=== PATIENT | male | born 1950 | race Caucasian/White ===

== ENCOUNTER 2018-10-03 08:55 | Observation (INO) | payer OTHER, MEDICARE ==
[~2018-10-03] VITALS: Ht 167.6 cm; Wt 89.6 kg
[2018-10-03] MEDS ORDERED: ONDANSETRON 2MG/ML, 2ML ONE (09:28)
[2018-10-03] MEDS ORDERED: MORPHINE SULFATE 4 MG/ML, 1ML ONE ×2 (09:29→10:58)
[2018-10-03] MEDS ORDERED: PLEASE ENTER ALLERGIES MC SCH (09:30)
[2018-10-03] MEDS ORDERED: ONDANSETRON 2MG/ML, 2ML IVPush ONE (09:30)
[2018-10-03] MEDS ORDERED: SODIUM CHLORIDE FLUSH 10ML SYR IVF ONE (09:30)
[2018-10-03] MEDS: MORPHINE SULFATE 4 MG/ML, 1ML IVPush PRN ×4 (09:42→14:44)
[2018-10-03] MEDS ORDERED: CYCLOBENZAPRINE 10 MG TABLET ONE (10:58)
[2018-10-03] MEDS ORDERED: CYCLOBENZAPRINE 10 MG TABLET PO ONE (11:00)
--- NOTE | 2018-10-03 11:20 | NUR ---
UNABLE TO AMBULATE DUE TO PAIN WILL REMEDICATE
--- NOTE | 2018-10-03 12:15 | NUR ---
REMAINS IN PAIN THAT PREVENTS WALKING
--- NOTE | 2018-10-03 12:29 | NUR ---
MUCH DISCUSION RE ADMIT OR DC HAS TAKEN PLACE WITH PT FAMILY THE ERP WITH INTERJECTION FROM A CLOSE FRIEND IT IS THE RECOMENDATION OF THE ERP TO ADMIT FOR PAIN NOT CONTROLLED WITH MORPHINE FRIEND CONTINUES TO WANT AND ECOURAGES THE PT TO ASK FOR MORE AND DIFFERANT PAIN MEDS AT THIS TIME LABS DRAWN AND ADMIT DEFERRED TO WAIT ON RESULTS OF LAB PER FAMILY
[2018-10-03 12:32] LABS: BASOPHILS # (AUTO) 0.04 x10^3/uL (0-0.1); BASOPHILS % (AUTO) 0 % (0-1); EOSINOPHILS # (AUTO) 0.09 x10^3/uL (0-0.4); EOSINOPHILS % (AUTO) 1 % (1-7); LYMPHOCYTES # (AUTO) 1.93 x10^3/uL (1-3.4); LYMPHOCYTES % (AUTO) 18 % (22-44); MD NO; MEAN CORPUSCULAR HEMOGLOBIN 32.4 pg (27.5-34.5); MEAN CORPUSCULAR HGB CONC 34.6 g/dL (33.2-36.2); MEAN CORPUSCULAR VOLUME 93.7 fL (81-97); MEAN PLATELET VOLUME 7.5 fL (7.4-10.4); MONOCYTES # (AUTO) 0.63 x10^3/uL (0.2-0.8); MONOCYTES % (AUTO) 6 % (2-9); NEUTROPHILS # (AUTO) 8.24 x10^3/uL (1.8-6.8); NEUTROPHILS % (AUTO) 75 % (42-75); PLATELET COUNT 284 x10^3/uL (130-400); RED BLOOD COUNT 5.07 x10^6/uL (4.38-5.82)
[2018-10-03 12:38] LABS: ANION GAP 7 mmol/L (5-15); CALCIUM 9.2 mg/dL (8.5-10.1); CHLORIDE 109 mmol/L (98-107); CREATININE 0.91 mg/dL (0.7-1.3)
[2018-10-03] MEDS ORDERED: KETOROLAC 30 MG/1 ML ONE (12:54)
[2018-10-03] MEDS ORDERED: KETOROLAC 30 MG/1 ML IVPush ONE (13:00)
--- NOTE | 2018-10-03 13:22 | NUR ---
HOSPITALIST TO THE BS
[2018-10-03] MEDS ORDERED: SODIUM CHLORIDE 0.9% 1,000 ML IV SCH (13:28)
[2018-10-03] MEDS ORDERED: LISINOPRIL 10 MG TABLET PO ONE (13:30)
[2018-10-03] MEDS ORDERED: BISACODYL 10 MG SUPP PR PRN (13:30)
[2018-10-03] MEDS ORDERED: hydrALAzine 20 MG/ML, 1ML IVPush PRN (13:30)
[2018-10-03] MEDS ORDERED: LIDODERM 5% PATCH TD PRN (13:30)
[2018-10-03] MEDS ORDERED: CYCLOBENZAPRINE 10 MG TABLET PO PRN ×2 (13:30→17:00)
[2018-10-03] MEDS ORDERED: DOCUSATE 100 MG CAPSULE PO PRN (13:30)
[2018-10-03] MEDS ORDERED: HYDROCHLOROTHIAZIDE 12.5 MG CAPSULE PO ONE (13:30)
[2018-10-03] MEDS ORDERED: ACETAMINOPHEN 325 MG TABLET PO PRN (13:30)
[2018-10-03] MEDS ORDERED: ONDANSETRON 2MG/ML, 2ML IVPush PRN (13:30)
[2018-10-03] MEDS ORDERED: ENALAPRILAT 1.25 MG/ML, 2ML IVPush PRN (13:30)
[2018-10-03] MEDS ORDERED: ONDANSETRON ODT 4 MG PO PRN (13:30)
[2018-10-03 13:55] VITALS: BP 133/70
[2018-10-03 14:00] VITALS: BP 133/70
[2018-10-03] MEDS: NICOTINE 7 MG/24 HR PATCH.TD24 TD SCH (15:11)
[2018-10-03] MEDS: HYDROcodone/APAP 5/325 TABLET PO PRN ×2 (15:40→21:54)
[2018-10-03 19:50] VITALS: BP 121/70
[2018-10-03] MEDS: SIMVASTATIN 40 MG TABLET PO SCH (20:07)
[2018-10-03] MEDS: METHOCARBAMOL 500 MG TABLET PO PRN (23:53)
[2018-10-04 01:32] VITALS: BP 122/66
[2018-10-04 02:24] LABS: MICROSCOPIC NOT IND
[2018-10-04 02:32] LABS: CULTURE INDICATED? NO
[2018-10-04 05:14] LABS: BASOPHILS # (AUTO) 0.04 x10^3/uL (0-0.1); BASOPHILS % (AUTO) 1 % (0-1); EOSINOPHILS # (AUTO) 0.23 x10^3/uL (0-0.4); EOSINOPHILS % (AUTO) 3 % (1-7); LYMPHOCYTES # (AUTO) 3.02 x10^3/uL (1-3.4); LYMPHOCYTES % (AUTO) 40 % (22-44); MD NO; MEAN CORPUSCULAR HEMOGLOBIN 32.5 pg (27.5-34.5); MEAN CORPUSCULAR HGB CONC 34.2 g/dL (33.2-36.2); MEAN CORPUSCULAR VOLUME 94.9 fL (81-97); MONOCYTES % (AUTO) 11 % (2-9); NEUTROPHILS % (AUTO) 45 % (42-75); PLATELET COUNT 240 x10^3/uL (130-400); RED BLOOD COUNT 4.51 x10^6/uL (4.38-5.82); RED CELL DISTRIBUTION WIDTH 13.6 % (9.4-14.8)
[2018-10-04 05:28] LABS: ANION GAP 6 mmol/L (5-15); CALCIUM 8.6 mg/dL (8.5-10.1); CHLORIDE 111 mmol/L (98-107); CREATININE 0.86 mg/dL (0.7-1.3)
[2018-10-04] MEDS: ASPIRIN 81 MG TABLET EC PO SCH (05:35)
[2018-10-04] MEDS: HYDROcodone/APAP 5/325 TABLET PO PRN (05:35)
[2018-10-04 07:08] VITALS: BP 148/69
[2018-10-04] MEDS: SENNA/DOCUSATE TABLET PO SCH (08:16)
[2018-10-04] MEDS: ACETAMINOPHEN 325 MG TABLET PO SCH ×3 (10:06→20:59)
[2018-10-04 12:30] VITALS: BP 125/75
[2018-10-04] MEDS ORDERED: HYDROcodone/APAP 5/325 TABLET PO PRN (13:30)
[2018-10-04] MEDS: METHOCARBAMOL 500 MG TABLET PO PRN (13:34)
[2018-10-04] MEDS: NICOTINE 7 MG/24 HR PATCH.TD24 TD SCH (13:34)
[2018-10-04] MEDS: KETOROLAC 30 MG/1 ML IV PRN ×2 (14:15→20:33)
[2018-10-04 19:38] VITALS: BP 139/67
[2018-10-04] MEDS: SIMVASTATIN 40 MG TABLET PO SCH (20:33)
[2018-10-05] MEDS: METHOCARBAMOL 500 MG TABLET PO PRN ×2 (00:07→09:29)
[2018-10-05 01:32] VITALS: BP 138/62
[2018-10-05] MEDS: ACETAMINOPHEN 325 MG TABLET PO SCH ×2 (04:15→09:29)
[2018-10-05] MEDS: KETOROLAC 30 MG/1 ML IV PRN (04:15)
[2018-10-05] MEDS: ASPIRIN 81 MG TABLET EC PO SCH (05:54)
[2018-10-05 06:56] VITALS: BP 135/71
[2018-10-05] MEDS: SENNA/DOCUSATE TABLET PO SCH (09:29)
[2018-10-05] MEDS ORDERED: LIDO700A20 TD (10:48)
[2018-10-05] MEDS ORDERED: SIMV40TA3 PO (10:48)
[2018-10-05] MEDS ORDERED: NICO-485 TD (10:48)
[2018-10-05] MEDS ORDERED: ACET325T14 PO (10:48)
[2018-10-05] MEDS ORDERED: METH500T7 PO (10:48)
[2018-10-05] MEDS ORDERED: ASPI81TA45 PO (10:48)
[2018-10-05 12:43] VITALS: BP 146/78
[2018-10-05] MEDS: NICOTINE 7 MG/24 HR PATCH.TD24 TD SCH (13:30)
== END 2018-10-05 14:15 | disposition home or self-care (01) ==
LOC: ED 13:00 → EDIP 13:03 → ED 13:03 → INTOOBSV 13:03 → 4NOR 13:52 → ED 13:52 → 4NOR 13:52 → DCLOUNGE 10-05 13:50
PROVIDERS: ADMIT Hospitalist; ATTEND Hospitalist
DX: M54.5 Low back pain (principal); M51.36 Other intervertebral disc degeneration, lumbar region; M47.816 Spondylosis without myelopathy or radiculopathy, lumbar region; M19.90 Unspecified osteoarthritis, unspecified site; I10 Essential (primary) hypertension; E78.5 Hyperlipidemia, unspecified; E66.9 Obesity, unspecified; W10.9XXA Fall (on) (from) unspecified stairs and steps, initial encounter; Y93.89 Activity, other specified; Y92.89 Other specified places as the place of occurrence of the external cause; Y99.8 Other external cause status; Z82.0 Family history of epilepsy and other diseases of the nervous system; Z87.891 Personal history of nicotine dependence
CPT/HCPCS: 36415; 71101; 72110; 72190; 80048; 81003; 85025; 96374; 96375; 96376; 97112; 97161; 97166; 97530; 99284; G0378; G8978; G8979; G8980; J1885; J2405; J7030; 99285

== ENCOUNTER → 2020-04-20 | Outpatient (CLI) | payer OTHER ==
[~2020-04-20] MED LIST: ACET325T14 PO; ASPI81TA45 PO; LIDO700A20 TD; METH500T7 PO; NICO-485 TD; SIMV40TA20 PO
== END | disposition home or self-care (01) ==
LOC: CFH 12:48
PROVIDERS: ATTEND Nurse Practitioner Family
DX: Z12.2 Encounter for screening for malignant neoplasm of respiratory organs (principal); R91.1 Solitary pulmonary nodule; I25.10 Atherosclerotic heart disease of native coronary artery without angina pectoris; J84.10 Pulmonary fibrosis, unspecified; F17.210 Nicotine dependence, cigarettes, uncomplicated
CPT/HCPCS: G0297

== ENCOUNTER → 2020-09-25 | Outpatient (CLI) | payer OTHER ==
[~2020-09-25] MED LIST changes: +OMNIPAQUE 350 MG/ML, 100ML BOTTLE ONE
== END | disposition home or self-care (01) ==
LOC: CFH 14:23
PROVIDERS: ATTEND Nurse Practitioner Family
DX: J84.10 Pulmonary fibrosis, unspecified (principal); R91.1 Solitary pulmonary nodule
CPT/HCPCS: 71260; Q9967